=== PATIENT | female | born 1995 | race Caucasian/White ===

== ENCOUNTER 2018-09-12 07:01 | Emergency (ER) | payer OTHER ==
--- NOTE | 2018-09-12 07:34 | EDM.PDOC ---
ED HPI GENERAL MEDICAL PROBLEM - General Chief Complaint: General Stated Complaint: "I think I am having a miscarriage" Time Seen by Provider: 09/12/18 07:23 Source of Information: Reports: Patient History Limitations: Reports: No Limitations - History of Present Illness INITIAL COMMENTS - FREE TEXT/NARRATIVE: in with c/o had a brown vag dc last night, woke up this morning with vaginal bleeding with clots, has pelvic cramping,last intercourse was one week ago, no UTI sx, no back pain, no NVDC. G-1, P-0, A-0, LMP is not sure thinks June 2018 , EDC was told Mar 2019, has had an US which did not confirm a IUP secondary to it being too early. Onset: Today, Sudden Duration: Hour(s): Location: Reports: Pelvis Quality: Reports: Other (cramping) Severity: Moderate Improves with: Reports: None Worsens with: Reports: None Associated Symptoms: Reports: No Other Symptoms. Denies: Chest Pain, Fever/ Chills, Headaches, Nausea/Vomiting, Shortness of Breath, Weakness Treatments DIGITAL PHOTOGRAPHER: Reports: Other (see below) (none) Lower Abdomen Pain Score (Numeric/FACES): 8 - Related Data Allergies Allergy/AdvReac Type Severity Reaction Status Date / Time amoxicillin Allergy Hives Verified 09/12/18 07:02 Home Meds: Home Meds Levothyroxine 25 mcg PO DAILY 09/12/18 [History] Past Medical History - Past Health History Medical/Surgical History: Denies Medical/Surgical History - Past Surgical History HEENT Surgical History: Reports: Tonsillectomy, Other (See Below) (Dental) Social & Family History - Family History Cardiac: Reports: Hypertension - Tobacco Use Smoking Status *Q: Never Smoker - Alcohol Use Alcohol Use History: Yes Alcohol Use Frequency: Rarely ED ROS GENERAL - Review of Systems Review Of Systems: See Below Constitutional: Reports: No Symptoms. Denies: Fever, Chills HEENT: Reports: No Symptoms Respiratory: Reports: No Symptoms. Denies: Shortness of Breath Cardiovascular: Reports: No Symptoms. Denies: Chest Pain GI/Abdominal: Reports: Abdominal Pain (pelvic cramping). Denies: Nausea, Vomiting : Reports: Other (vaginal bleeding) Musculoskeletal: Reports: No Symptoms. Denies: Neck Pain, Back Pain Skin: Reports: No Symptoms Neurological: Reports: No Symptoms Psychiatric: Reports: No Symptoms ED EXAM, GENERAL - Physical Exam Exam: See Below Exam Limited By: No Limitations General Appearance: Alert, WD/WN, Anxious Ears: Normal External Exam Nose: Normal Inspection Throat/Mouth: Normal Lips, Normal Voice, No Airway Compromise Head: Atraumatic, Normocephalic Neck: Normal Inspection, Supple, Non-Tender, Full Range of Motion Respiratory/Chest: No Respiratory Distress, Lungs Clear, Normal Breath Sounds, No Accessory Muscle Use Cardiovascular: Normal Peripheral Pulses, Regular Rate, Rhythm, No Murmur Peripheral Pulses: 2+: Radial (L) GI/Abdominal: Normal Bowel Sounds, Soft. No: Non-Tender (suprapubic tenderness with palpation) (Female) Exam: Vaginal Bleeding (large clot removed with oozing from the cervix). No: Normal Speculum Exam Back Exam: Normal Inspection, Full Range of Motion Extremities: Normal Inspection, Normal Range of Motion, Non-Tender, No Pedal Edema, Normal Capillary Refill Neurological: Alert, Oriented, Normal Cognition, Normal Gait, No Motor/Sensory Deficits Psychiatric: Anxious Skin Exam: Warm, Dry, Intact, Normal Color Course - Vital Signs Last Recorded V/S: Last Vital Signs Temp 36.8 C 09/12/18 07:03 Pulse 70 09/12/18 07:03 Resp 18 09/12/18 07:03 BP 106/64 09/12/18 07:03 Pulse Ox 100 09/12/18 07:03 - Orders/Labs/Meds Orders: Active Orders 24 hr Category Date Time Status OB Transvaginal [US] Stat Exams 09/12/18 07:27 Ordered AB SCREEN (GEL) [BBK] Stat Lab 09/12/18 07:47 Ordered ABO/RH TYPE [BBK] Stat Lab 09/12/18 07:47 Ordered BHCG QUANTITATIVE [REF] Stat Lab 09/12/18 07:27 Ordered RHOGAM, MISCARRIAGE [RHIG WORKUP, MISCARRIAGE] [BBK] Lab 09/12/18 08:45 Ordered Stat UA W/DAVE RFLX IF INDICATED [URIN] Stat Lab 09/12/18 07:27 Ordered Labs: Laboratory Tests 09/12/18 09/12/18 Range/Units 07:30 07:30 WBC 9.0 (5.0-10.0) 10^3/uL RBC 4.24 (4.00-5.50) 10^6/uL Hgb 12.3 (12.0-16.0) g/dL Hct 37.0 (37.0-47.0) % MCV 87.3 (82.0-94.0) fL MCH 29.0 (27.0-32.0) pg MCHC 33.2 (33.0-38.0) g/dL RDW Coeff of Nate 12.6 (11.0-15.0) % Plt Count 284 (150-400) 10^3/uL Neut % (Auto) 65.8 (35-85) % Lymph % (Auto) 24.6 (10-55) % [place] % (Auto) 8.4 (0-16) % Eos % (Auto) 1.1 (0-5) % Baso % (Auto) 0.1 (0-3) % Neut # (Auto) 5.93 (1.80-7.00) 10^3/uL Lymph # (Auto) 2.22 (1.00-4.80) 10^3/uL [place] # (Auto) 0.76 (0.00-0.80) 10^3/uL Eos # (Auto) 0.10 (0.00-0.45) 10^3/uL Baso # (Auto) 0.01 10^3/uL Sodium 139 (136-145) mEq/L Potassium 3.9 (3.5-5.0) mEq/L Chloride 102 (98-106) mEq/L Carbon Dioxide 27 (21-32) mmol/L BUN 13 (7-18) mg/dL Creatinine 0.7 (0.6-1.0) mg/dL Est Cr Clr Drug Dosing 103.40 mL/min Estimated GFR (MDRD) > 60 (>=60) mL/min Glucose 95 (75-99) mg/dL Calcium 9.1 (8.4-10.1) mg/dL Departure - Departure Time of Disposition: 08:54 Disposition: Home, Self-Care 01 Condition: Good Clinical Impression: Incomplete - Discharge Information *PRESCRIPTION DRUG MONITORING PROGRAM REVIEWED*: Not Applicable *COPY OF PRESCRIPTION DRUG MONITORING REPORT IN PATIENT BALTA: Not Applicable Instructions: Incomplete Miscarriage Forms: ED Department Discharge Additional Instructions: pelvic rest, nothing in the vagina until ok with your OB doctor increase fluids call your OB doctor in the morning for a follow up appointment if any worsening bleeding, pain, fever or other concerns return to the ER immediately ED Communication - Conversation Summary Summary Comment: [id number] I spoke with the ED physician and he transfered me to maternity to speak to the [employer] communication and outreach manager. [address] Santos, I advised her of the pts CC, HPI, labd, PE and US, she advised that the pt can be dc home, needs to come back if > 1 pad per hour for 6 hours, otherwise needs to f/u with her OB doctor this week - Problem List & Annotations (1) Incomplete SNOMED Code(s): 992653191 Code(s): O03.4 - INCOMPLETE SPONTANEOUS WITHOUT COMPLICATION Status: Acute Priority: High Current Visit: Yes - Problem List Review Problem List Initiated/Reviewed/Updated: Yes - My Orders Last 24 Hours: My Active Orders 09/12/18 07:27 OB Transvaginal [US] Stat BHCG QUANTITATIVE [REF] Stat UA W/DAVE RFLX IF INDICATED [URIN] Stat 09/12/18 07:47 AB SCREEN (GEL) [BBK] Stat ABO/RH TYPE [BBK] Stat 09/12/18 08:45 RHOGAM, MISCARRIAGE [RHIG WORKUP, MISCARRIAGE] [BBK] Stat - Assessment/Plan Last 24 Hours: My Active Orders 09/12/18 07:27 OB Transvaginal [US] Stat BHCG QUANTITATIVE [REF] Stat UA W/DAVE RFLX IF INDICATED [URIN] Stat 09/12/18 07:47 AB SCREEN (GEL) [BBK] Stat ABO/RH TYPE [BBK] Stat 09/12/18 08:45 RHOGAM, MISCARRIAGE [RHIG WORKUP, MISCARRIAGE] [BBK] Stat Assessment:: incomplete Plan: see dc instructions will f/u with OB this week, her RH is neg and Rhogam will be given in the ED, Quant HCG will be sent out for results
[2018-09-12 07:59] LABS: CHLORIDE,CL 102 mEq/L (98-106); SODIUM,NA 139 mEq/L (136-145)
== END 2018-09-12 09:53 | disposition home or self-care (01) ==
LOC: CC.ED 07:01
DX: O03.4 Incomplete spontaneous abortion without complication (principal)
CPT/HCPCS: 36415; 36430; 76817; 80048; 84702; 85025; 86850; 86900; 86901; 99284-25; J2790